=== PATIENT | female | born 1955 | race Caucasian/White ===

== ENCOUNTER 2019-03-16 11:06 | Observation (INO) ==
[2019-03-16] MEDS ORDERED: NITROGLYCERIN 0.4 MG/TAB BTL SL ONE (11:10)
[2019-03-16] MEDS ORDERED: ASPIRIN 81 MG TAB.CHEW PO ONE (11:10)
[2019-03-16] MEDS ORDERED: MORPHINE SULFATE 2 MG/ML DISP.SYRIN IV ONE (11:31)
[2019-03-16 11:33] LABS: Hematocrit 40.7 % (37.0-47.0); Hemoglobin 13.5 gm/dL (12.5-16.0); Mean Cell Volume 87.3 fl (78-100); Mean Corpuscular Hgb Conc 33.2 g/dl (32-36); Neutrophil # 1.7 K/mm3 (1.3-6.0); Neutrophil % 37.5 % (42-75.0); Platelet Count 226 K/mm3 (150-450); Red Blood Count 4.66 M/mm3 (4.2-5.4); Red Cell Distribution Width 13.2 % (11.5-14.0); White Blood Count 4.5 K/mm3 (4.0-10.5)
--- NOTE | 2019-03-16 11:35 | ERNOTE ---
Chest Pain/Cardiac HPI Date of Service: 03/16/19 Chief Complaint: Chest Pain Time Seen by Provider: 03/16/19 11:08 Source: patient Exam Limitations: no limitations Immunizations: IMMUNIZATION HX Immunizations Up to Date Yes History of Influenza Vaccine Yes Hx Pneumococcal Vaccination No Allergies/Adverse Reactions: Allergies ciprofloxacin [From Cipro] Allergy (Severe, Verified 03/16/19 11:14) Anaphylaxis Narrative: Patient presents to the ED for right arm pain and SOB. She woke up not feeling well this am, then approx 1 hour ago she developed SOB with chest tightness and right arm pain. She thinks it may be her fibromyalgia. No other fever or cough. No calf pain or leg swelling. Has not seen anyone else for this. Never had anything like this before. Timing: constant Severity/Quality: severe Location: other - diffuse chest tightness Chest Pain Radiation: neck, other - right arm Activities at Onset: none Modifying Factors - Worsens: Present: nothing Nitro Today/Relief: no nitro taken today Aspirin Treatment Today: no aspirin today Associated Symptoms: Present: shortness of breath. Absent: syncope, cough, vomiting, abdominal pain, weakness Prior Chest Pain/Cardiac Workup: Denies: prior chest pain Prior Treatment: Denies: recently seen Review of Systems - Review of Systems Constitutional: Absent: fever EYE: Present: no symptoms reported ENT: Absent: sore throat Respiratory: Present: shortness of breath Cardiology: Present: chest pain Gastrointestinal/Abdominal: Absent: abdominal pain Genitourinary: Absent: dysuria Musculoskeletal: Present: other - fibromyalgia All Other Systems: All systems neg except as marked Medical History (Updated 03/16/19 @ 11:16 by Greta Patton RN) History of fibromyalgia Hx of gastroesophageal reflux (GERD) Hx of hyperlipidemia Hx of hysterectomy Hx of primary hypertension Surgical History: Surgical History (Updated 03/16/19 @ 11:16 by Greta Patton RN) History of rectal surgery Hx of cholecystectomy Hx of hernia repair Hx of knee surgery Hx of vaginal surgery Family History: Family History (Updated 03/16/19 @ 11:16 by Greta Patton RN) Other No pertinent family history Social History: Preferred Language Irish Do you have any cheondoism or No cultural preference? Smoking Status Never smoker Alcohol Use none Drug Use none No Social History Section defined Physical Exam - Physical Exam General Appearance: Present: alert, no apparent distress Head Exam: Present: normal inspection, no evidence of injury Eye Exam: Normal inspection: bilateral, PERRL: bilateral Ears, Nose, Throat: Present: normal ENT inspection Neck: Present: normal inspection Respiratory: Present: no respiratory distress, normal breath sounds, no accessory muscle use, lungs clear Cardiovascular/Chest: Present: regular rate, rhythm, normal peripheral pulses Gastrointestinal/Abdominal: Present: normal bowel sounds, nontender, nondistended, soft Back Exam: Present: normal range of motion Extremity Exam: Present: normal inspection, normal range of motion Neurological Exam: Present: alert, no motor/sensory deficits Skin Exam: Present: normal color, warm/dry Progress - Results and Orders Patient's Lab Results:: I have reviewed the patient's lab results. - Vital Signs Patient's Vital Signs:: I have reviewed the patient's vital signs. Vital Signs: Vital Signs 03/16/19 11:12 Temperature 36.1 C Pulse Rate 75 Respiratory Rate 15 Blood Pressure 188/82 H O2 Sat by Pulse Oximetry 99 - EKG EKG #1 EKG: NSR EKG read: Interp. by me EKG Comments: NSR rate 72. Non-specific ST/T wave changes, no STEMI noted. - X-Ray X-Ray #1 X-Ray: chest Interpretation: Interp. by me X-ray Comments: I reviewed official radiology report. - Progress/Reassessment Chief Complaint: Chest Pain Progress Note-Subjective: 03/16/19 13:15 Patient has non-specific EKG changes, neg initial trop but only one hour of pain. Nothing to suggest PE or aortic dissection. She reports a stress test in the past, nothing real recent. She has some concerning aspects of her story. I discussed repeat trop in ED vs admission, she prefers admission which given her non-specific EKG changes this is reasonable. I discussed the case with Dr Haq who will admit obs. Departure Clinical Impression: Chest pain, Nonspecific ST-T wave electrocardiographic changes - Departure Disposition: Short Term Hospital Inpatient Condition: Stable
[2019-03-16 11:48] LABS: ALT 41 U/L (19-67); AST 23 U/L (0-48); Albumin * 3.4 gm/dl (3.4-5.0); Alkaline Phosphatase * 94 U/L (50-170); Anion Gap 12.7 mmol/L (6.8-13.8); BUN/Creatinine Ratio 27.1 (9.0-21.6); Bilirubin, Total 0.4 mg/dL (0.0-1.1); Blood Urea Nitrogen 16 mg/dL (3-23); Ca. Corrected For Albumin 9.4 mg/dL (8.4-10.2); Calcium * 9.2 mg/dL (7.9-10.9); Carbon Dioxide 28.5 mmol/L (24-32.6); Chloride 103 mmol/L (97-106); Glucose * 135 mg/dL (70-110); Potassium 3.2 mmol/L (3.4-4.6); Sodium 141 mmol/L (132-142); Total Protein 7.3 gm/dL (6.2-8.2); Troponin I Less than 0.017 ng/mL (0.00-0.10)
[2019-03-16] MEDS ORDERED: POTASSIUM CHLORIDE 20 MEQ TABLET.SA PO ONE (11:55)
[2019-03-16] MEDS ORDERED: LIDOCAINE HCL 20 ML UDC PO ONE (12:57)
[2019-03-16] MEDS ORDERED: BELLADONNA ALKALOIDS/PHENOBARB ELIXIR PO ONE (12:57)
[2019-03-16] MEDS ORDERED: MAG HYDROX/ALUMINUM HYD/SIMETH 30 ML UDC PO ONE (12:57)
--- NOTE | 2019-03-16 17:00 | HP ---
Chief Complaint - Chief Complaint Date of Service: 03/16/19 Time of Service: 17:00 Chief Complaint: Chest Pain Medical History (Updated 03/16/19 @ 13:20 by Channing Lozano MD) History of fibromyalgia Hx of gastroesophageal reflux (GERD) Hx of hyperlipidemia Hx of hysterectomy Hx of primary hypertension Surgical History: Surgical History (Updated 03/16/19 @ 11:16 by Greta Patton, RN) History of rectal surgery Hx of cholecystectomy Hx of hernia repair Hx of knee surgery Hx of vaginal surgery Family History: Family History (Updated 03/16/19 @ 11:16 by Greta Patton, DAVID) Other No pertinent family history Social History: Patient Lives/Resources Home Utilized Preferred Language Sami Do you have any samaritan or Yes: Yarsani cultural preference? Smoking Status Former smoker Have you smoked in the past 12 No months Alcohol Use none Drug Use none No Social History Section defined Immunizations: IMMUNIZATION HX Immunizations Up to Date Yes History of Influenza Vaccine Yes Hx Pneumococcal Vaccination No Allergies/Adverse Reactions: Allergies Allergy/AdvReac Type Severity Reaction Status Date / Time ciprofloxacin [From Cipro] Allergy Severe Anaphylaxis Verified 03/16/19 14:29 Home Medications: HOME MEDICATIONS Aspirin 81 mg PO DAILY 03/16/19 [Last Taken Unknown] Atorvastatin Calcium 40 mg PO DAILY 03/16/19 [Last Taken Unknown] Carvedilol [Coreg] 25 mg PO DAILY 03/16/19 [Last Taken Unknown] DULoxetine HCL [Cymbalta] 60 mg PO DAILY 03/16/19 [Last Taken Unknown] Furosemide 20 mg PO PRN 03/16/19 [Last Taken Unknown] Hydrochlorothiazide [Hydrodiuril] 25 mg PO DAILY 03/16/19 [Last Taken Unknown] Losartan Potassium 100 mg PO DAILY 03/16/19 [Last Taken Unknown] Pantoprazole Sodium 40 mg PO BID 03/16/19 [Last Taken Unknown] Pramipexole Di-HCl [Pramipexole Dihydrochloride] 3 mg PO HS 03/16/19 [Last Taken Unknown] Ranitidine HCl [Zantac] 300 mg PO HS 03/16/19 [Last Taken Unknown] oxyCODONE HCL/ACETAMINOPHEN [Oxycodone-Acetaminophen 5-325] 1 ea PO PRN PRN 03/16/19 [Last Taken Unknown] Exam - Exam Vital Signs: Vital Signs - Last Taken Temp 36.1 C 03/16/19 13:50 Pulse 62 03/16/19 13:50 Resp 19 03/16/19 13:50 BP 166/77 H 03/16/19 13:50 Pulse Ox 98 03/16/19 13:50 Diagnostic Studies: Abnormal Lab Results 03/16/19 03/16/19 Range/Units 11:26 11:26 Neutrophils % 37.5 L (42-75.0) % Lymphocytes % 51.3 H (20-51) % Eosinophils % 3.5 H (0.0-3.0) % Potassium 3.2 L (3.4-4.6) mmol/L BUN/Creatinine Ratio 27.1 H (9.0-21.6) Random Glucose 135 H (70-110) mg/dL Laboratory Results WBC 4.5 K/mm3 (4.0-10.5) 03/16/19 11:26 RBC 4.66 M/mm3 (4.2-5.4) 03/16/19 11:26 Hgb 13.5 gm/dL (12.5-16.0) 03/16/19 11:26 Hct 40.7 % (37.0-47.0) 03/16/19 11:26 MCV 87.3 fl (78-100) 03/16/19 11:26 MCH 29.0 pg (27-31) 03/16/19 11:26 MCHC 33.2 g/dl (32-36) 03/16/19 11:26 RDW 13.2 % (11.5-14.0) 03/16/19 11:26 Plt Count 226 K/mm3 (150-450) 03/16/19 11:26 MPV 11.0 fl (8-12.5) 03/16/19 11:26 Immature Gran % (Auto) 0.20 % (0.001-0.429) 03/16/19 11:26 Immature Gran # (Auto) 0.01 K/mm3 (0.000-0.0310) 03/16/19 11:26 37.5 % (42-75.0) L 03/16/19 11:26 51.3 % (20-51) H 03/16/19 11:26 7.1 % (0.0-9) 03/16/19 11:26 3.5 % (0.0-3.0) H 03/16/19 11:26 0.4 % (0.0-1.0) 03/16/19 11:26 Nucleated RBC % 0.0 k/mm3 (0-1) 03/16/19 11:26 1.7 K/mm3 (1.3-6.0) 03/16/19 11:26 2.32 k/mm3 (1.5-3.5) 03/16/19 11:26 0.3 k/mm3 (0.0-1.0) 03/16/19 11:26 0.2 k/mm3 (0.0-0.7) 03/16/19 11:26 Absolute Basophils 0.0 k/mm3 (0.0-0.1) 03/16/19 11:26 0.47 ug/mL (0.19-0.49) 03/16/19 11:25 Sodium 141 mmol/L (132-142) 03/16/19 11:26 142 mmol/L (130-142) 03/16/19 11:26 Potassium 3.2 mmol/L (3.4-4.6) L 03/16/19 11:26 Chloride 103 mmol/L (97-106) 03/16/19 11:26 Carbon Dioxide 28.5 mmol/L (24-32.6) 03/16/19 11:26 12.7 mmol/L (6.8-13.8) 03/16/19 11:26 BUN 16 mg/dL (3-23) 03/16/19 11:26 0.59 mg/dL (0.4-1.4) 03/16/19 11:26 Est GFR (Non-Af Amer) 110 mL/min (60-130) 03/16/19 11:26 27.1 (9.0-21.6) H 03/16/19 11:26 135 mg/dL (70-110) H 03/16/19 11:26 Calcium 9.2 mg/dL (7.9-10.9) 03/16/19 11:26 Calcium Adj for Albumin 9.4 mg/dL (8.4-10.2) 03/16/19 11:26 0.4 mg/dL (0.0-1.1) 03/16/19 11:26 AST 23 U/L (0-48) 03/16/19 11:26 ALT 41 U/L (19-67) 03/16/19 11:26 94 U/L (50-170) 03/16/19 11:26 91 U/L (0-259) 03/16/19 11:20 Less than 0.017 ng/mL (0.00-0.10) 03/16/19 11:26 7.3 gm/dL (6.2-8.2) 03/16/19 11:26 3.4 gm/dl (3.4-5.0) 03/16/19 11:26
--- NOTE | 2019-03-16 19:23 | HPDIS ---
Chief Complaint - Chief Complaint Date of Service: 03/16/19 Time of Service: 19:19 Chief Complaint: Chest Pain History of Present Illness: Cyndi is a 63 yo female that presents to the ED for right arm pain and SOB. She has a history of fibromyalgia but has not had pain like this before. No fever, chills, nausea, or vomiting. She denies any recent change in diet, exercise, medication, or recent illnesses. She has not been doing any different activities from her normal routine. There are no precipitating or alleviating events. Symptoms are currently better and they seem to have improved on their own. Medical History (Updated 03/16/19 @ 13:20 by Channing Lozano MD) History of fibromyalgia Hx of gastroesophageal reflux (GERD) Hx of hyperlipidemia Hx of hysterectomy Hx of primary hypertension Surgical History: Surgical History (Updated 03/16/19 @ 11:16 by Greta Patton RN) History of rectal surgery Hx of cholecystectomy Hx of hernia repair Hx of knee surgery Hx of vaginal surgery Family History: Family History (Updated 03/16/19 @ 11:16 by Greta Patton RN) Other No pertinent family history Social History: Patient Lives/Resources Home Utilized Preferred Language Estonian Do you have any restoration or Yes: Restorationist cultural preference? Smoking Status Former smoker Have you smoked in the past 12 No months Alcohol Use none Drug Use none No Social History Section defined Review Of Systems (GEN) - Review of Systems Generalized/Overall Review: Absent: Weakness, Chills, Fever EENTM: Present: No Symptoms Reported Respiratory: Absent: Cough, Shortness of Breath Cardiac: Absent: Chest Pain, Edema, Palpitations, Syncope Abdominal: Absent: Nausea, Vomiting Genitourinary: Present: No Symptoms Reported Musculoskeletal: Present: Muscle Pain - arm pain Neurological: Present: No Symptoms Reported Skin: Present: No Symptoms Reported Endocrine: Present: No Symptoms Reported Immunizations: IMMUNIZATION HX Immunizations Up to Date Yes History of Influenza Vaccine Yes Hx Pneumococcal Vaccination No Allergies/Adverse Reactions: Allergies Allergy/AdvReac Type Severity Reaction Status Date / Time ciprofloxacin [From Cipro] Allergy Severe Anaphylaxis Verified 03/16/19 14:29 Home Medications: HOME MEDICATIONS Aspirin 81 mg PO DAILY 03/16/19 [Last Taken Unknown] Atorvastatin Calcium 40 mg PO DAILY 03/16/19 [Last Taken Unknown] Carvedilol [Coreg] 25 mg PO DAILY 03/16/19 [Last Taken Unknown] DULoxetine HCL [Cymbalta] 60 mg PO DAILY 03/16/19 [Last Taken Unknown] Furosemide 20 mg PO PRN 03/16/19 [Last Taken Unknown] Hydrochlorothiazide [Hydrodiuril] 25 mg PO DAILY 03/16/19 [Last Taken Unknown] Losartan Potassium 100 mg PO DAILY 03/16/19 [Last Taken Unknown] Pantoprazole Sodium 40 mg PO BID 03/16/19 [Last Taken Unknown] Pramipexole Di-HCl [Pramipexole Dihydrochloride] 3 mg PO HS 03/16/19 [Last Taken Unknown] Ranitidine HCl [Zantac] 300 mg PO HS 03/16/19 [Last Taken Unknown] oxyCODONE HCL/ACETAMINOPHEN [Oxycodone-Acetaminophen 5-325] 1 ea PO PRN PRN 03/16/19 [Last Taken Unknown] Exam - Exam Vital Signs: Vital Signs - Last Taken Temp 36.1 C 03/16/19 13:50 Pulse 62 03/16/19 13:50 Resp 19 03/16/19 13:50 BP 166/77 H 03/16/19 13:50 Pulse Ox 98 03/16/19 13:50 Constitutional: Present: Alert, Oriented x3, Cooperative ENT Exam: Present: hearing grossly normal Eye Exam: bilateral eye: normal inspection Respiratory: Present: lungs clear, normal breath sounds Cardiovascular/Chest: Present: regular rate, rhythm, no murmur Peripheral Pulses: radial (R): 2+, radial (L): 2+ Abdomen: Present: Normal bowel sounds, soft, nontender, nondistended, no rebound tenderness, no hepatospenomegaly, no masses Extremity: Present: normal inspection Skin Exam: Present: normal color, warm/dry, no cyanosis Appearance: Present: appropriate appearance, appropriate insight Eye contact: Present: cooperative, good eye contact, normal speech Thoughts: Present: normal thought pattern, no apparent hallucination Diagnostic Studies: Abnormal Lab Results 03/16/19 03/16/19 Range/Units 11:26 11:26 Neutrophils % 37.5 L (42-75.0) % Lymphocytes % 51.3 H (20-51) % Eosinophils % 3.5 H (0.0-3.0) % Potassium 3.2 L (3.4-4.6) mmol/L BUN/Creatinine Ratio 27.1 H (9.0-21.6) Random Glucose 135 H (70-110) mg/dL Laboratory Results WBC 4.5 K/mm3 (4.0-10.5) 03/16/19 11:26 RBC 4.66 M/mm3 (4.2-5.4) 03/16/19 11:26 Hgb 13.5 gm/dL (12.5-16.0) 03/16/19 11:26 Hct 40.7 % (37.0-47.0) 03/16/19 11:26 MCV 87.3 fl (78-100) 03/16/19 11:26 MCH 29.0 pg (27-31) 03/16/19 11:26 MCHC 33.2 g/dl (32-36) 03/16/19 11:26 RDW 13.2 % (11.5-14.0) 03/16/19 11:26 Plt Count 226 K/mm3 (150-450) 03/16/19 11:26 MPV 11.0 fl (8-12.5) 03/16/19 11:26 Immature Gran % (Auto) 0.20 % (0.001-0.429) 03/16/19 11:26 Immature Gran # (Auto) 0.01 K/mm3 (0.000-0.0310) 03/16/19 11:26 37.5 % (42-75.0) L 03/16/19 11:26 51.3 % (20-51) H 03/16/19 11:26 7.1 % (0.0-9) 03/16/19 11:26 3.5 % (0.0-3.0) H 03/16/19 11:26 0.4 % (0.0-1.0) 03/16/19 11:26 Nucleated RBC % 0.0 k/mm3 (0-1) 03/16/19 11:26 1.7 K/mm3 (1.3-6.0) 03/16/19 11:26 2.32 k/mm3 (1.5-3.5) 03/16/19 11:26 0.3 k/mm3 (0.0-1.0) 03/16/19 11:26 0.2 k/mm3 (0.0-0.7) 03/16/19 11:26 Absolute Basophils 0.0 k/mm3 (0.0-0.1) 03/16/19 11:26 0.47 ug/mL (0.19-0.49) 03/16/19 11:25 Sodium 141 mmol/L (132-142) 03/16/19 11:26 142 mmol/L (130-142) 03/16/19 11:26 Potassium 3.2 mmol/L (3.4-4.6) L 03/16/19 11:26 Chloride 103 mmol/L (97-106) 03/16/19 11:26 Carbon Dioxide 28.5 mmol/L (24-32.6) 03/16/19 11:26 12.7 mmol/L (6.8-13.8) 03/16/19 11:26 BUN 16 mg/dL (3-23) 03/16/19 11:26 0.59 mg/dL (0.4-1.4) 03/16/19 11:26 Est GFR (Non-Af Amer) 110 mL/min (60-130) 03/16/19 11:26 27.1 (9.0-21.6) H 03/16/19 11:26 135 mg/dL (70-110) H 03/16/19 11:26 Calcium 9.2 mg/dL (7.9-10.9) 03/16/19 11:26 Calcium Adj for Albumin 9.4 mg/dL (8.4-10.2) 03/16/19 11:26 0.4 mg/dL (0.0-1.1) 03/16/19 11:26 AST 23 U/L (0-48) 03/16/19 11:26 ALT 41 U/L (19-67) 03/16/19 11:26 94 U/L (50-170) 03/16/19 11:26 91 U/L (0-259) 03/16/19 11:20 Less than 0.017 ng/mL (0.00-0.10) 03/16/19 17:23 7.3 gm/dL (6.2-8.2) 03/16/19 11:26 3.4 gm/dl (3.4-5.0) 03/16/19 11:26 Assessment/Plan - Assessment/Plan (1) Chest pain Assessment: Cyndi is a 63 yo female with chest pain equivalent with arm pain and chest tightness. Initial work up in the ER was negative for acute CT. Will plan to admit to observation on telemetry and monitor troponins. I suspect this is musculoskeletal related to her fibromyalgia but due to chest tightness and radiation to her arm in a female I feel it warrants evaluating for cardiac etiology. Problem: Acute Qualifiers: Chest pain type: unspecified Qualified Code(s): R07.9 - Chest pain, unspecified (1) Chest pain Problem: Acute Description of Stay: Cyndi is a 63 yo female admitted to observation for chest pain. Initial work up was negative for acute CT. She was admitted to telemetry and had repeat troponins. All testing was negative for acute CT. She has a history of fibromyalgia which flares with the weather and i suspect this is the source of her chest and right arm pain. She may follow up with her PCP and I have recommended no changes in medication at this time. Procedures Performed: none Results and Findings: Lab Pending Results 03/16/19 11:20: Creatine Kinase 91 03/16/19 11:25: D-Dimer 0.47 03/16/19 11:26: WBC 4.5, RBC 4.66, Hgb 13.5, Hct 40.7, MCV 87.3, MCH 29.0, MCHC 33.2, RDW 13.2, Plt Count 226, MPV 11.0, Immature Gran % (Auto) 0.20, Immature Gran # (Auto) 0.01, Neutrophils % 37.5 L, Lymphocytes % 51.3 H, Monocytes % 7.1, Eosinophils % 3.5 H, Basophils % 0.4, Nucleated RBC % 0.0, Neutrophils # 1.7, Lymphocytes # 2.32, Monocytes # 0.3, Eosinophils # 0.2, Absolute Basophils 0.0 03/16/19 11:26: Sodium 141, Plasma Sodium 142, Potassium 3.2 L, Chloride 103, Carbon Dioxide 28.5, Anion Gap 12.7, BUN 16, Creatinine 0.59, Est GFR (Non-Af Amer) 110, BUN/Creatinine Ratio 27.1 H, Random Glucose 135 H, Calcium 9.2, Calcium Adj for Albumin 9.4, Total Bilirubin 0.4, AST 23, ALT 41, Alkaline Phosphatase 94, Troponin I Less than 0.017, Total Protein 7.3, Albumin 3.4 03/16/19 17:23: Troponin I Less than 0.017 Discharge Location: Home Disposition: Home self-care Condition: Good Discharge Activity: Activity as tolerated Discharge Diet: General/regular food Referrals: Travon Prajapati MD [Primary Care Provider] - (Follow up with Dr. Prajapati in 1- 2 weeks.) Problem Oriented Discharge Instructions to Patient/Family: Chest Pain Observation Additional Patient Instructions (free text): -Please make TCM appointment unless fci discharge. Thank you! Teetee @ [phone]. Complete Home Medications List: Complete Home Medication List: Aspirin 81 mg PO DAILY 03/16/19 Atorvastatin Calcium 40 mg PO DAILY 03/16/19 Carvedilol [Coreg] 25 mg PO DAILY 03/16/19 DULoxetine HCL [Cymbalta] 60 mg PO DAILY 03/16/19 Furosemide 20 mg PO PRN 03/16/19 Hydrochlorothiazide [Hydrodiuril] 25 mg PO DAILY 03/16/19 Losartan Potassium 100 mg PO DAILY 03/16/19 Pantoprazole Sodium 40 mg PO BID 03/16/19 Pramipexole Di-HCl [Pramipexole Dihydrochloride] 3 mg PO HS 03/16/19 Ranitidine HCl [Zantac] 300 mg PO HS 03/16/19 oxyCODONE HCL/ACETAMINOPHEN [Oxycodone-Acetaminophen 5-325] 1 ea PO PRN PRN 03/16/19
[2019-03-16 19:35] VITALS: BP 161/75
== END 2019-03-16 19:55 | disposition home or self-care (01) ==
LOC: ER 11:06 → MS 11:06
PROVIDERS: ADMIT Family Medicine; ATTEND Family Medicine
DX: R07.9 Chest pain, unspecified
CPT/HCPCS: 36415; 71020; 71046; 80053; 82550; 84484; 85025; 85379; 93005; 96374; 99285